=== PATIENT | male | born 1960 | race Caucasian/White ===

== ENCOUNTER 2024-05-06 14:56 | Emergency (ER) | payer OTHER ==
--- OUTSIDE RECORDS SUMMARY | 2024-05-06 14:58 | XMS REPORT | Continuity of Care Document ---
Author Name Unknown Address [address] [place] [address] [facility] Address [address] [place] [address] Care Team Providers Care Charge Manager Name Role Phone Unavailable Unavailable Unavailable Payers Payer Name Policy Type Policy Number Effective Date Expirati on Date Source Allergies, Adverse Reactions, Alerts Allergy Name Allergy Type Status Severity Reaction(s) Onset Date Inactive Date Treating Clinician Comments Source No Known Allergie s DA Active U 09-21 00:00: 00 [facility] No Known Allergie s DA Active U - 00:00: 00 [facility] [place] [facility]
[2024-05-06] MEDS ORDERED: LIDOCAINE 2% W/EPI 1:200,000 MPF 20 ML VIAL IM ONE (15:07)
--- NOTE | 2024-05-06 15:32 | ER ---
Nurse's Notes [facility] Name: Imer Crabtree Age: 63 yrs Sex: Male : 1960 Arrival Date: 05/06/2024 Time: 14:56 Bed 3 Private MD: Diagnosis: Left lower extremity laceration 3 cm, repaired by physician Presentation: 05/06 15:07 Chief complaint: Patient states: he cut his left lower leg when attempting to start his ap3 chainsaw just [employer]. Coronavirus screen: At this time, the client does not indicate any symptoms associated with coronavirus-19. Ebola Screen: No symptoms or risks identified at this time. Initial Sepsis Screen: Does the patient meet any 2 criteria? HR > 90 bpm. Does the patient have a suspected source of infection? No. Patient's initial sepsis screen is negative. Risk Assessment: Do you want to hurt yourself or someone else? Patient reports no desire to harm self or others. Onset of symptoms was May 06, 2024. 15:07 Method Of Arrival: Wheelchair ap3 15:07 Acuity: ARYA 4 ap3 15:55 Complicating Factors: There are no complicating factors for this patient. ko1 Triage Assessment: 15:08 General: Appears in no apparent distress. Behavior is calm, cooperative, appropriate ap3 for age. Pain: Complains of pain in left link Pain currently is 0 out of 10 on a pain scale. Neuro: Level of Consciousness is awake, alert, obeys commands, Oriented to person, place, time, situation. Cardiovascular: Patient's skin is warm and dry. Respiratory: Airway is patent Respiratory effort is even, unlabored, Respiratory pattern is regular, symmetrical. Injury Description: Laceration sustained to left link. Historical: - Allergies: 15:08 No Known Allergies; ap3 - Immunization history:: Client reports receiving the 2nd dose of the Covid vaccine, Last tetanus immunization: unknown. - Infectious Disease History:: Denies. - Social history:: Smoking status: Patient denies any tobacco usage or history of. Screenin:09 Abuse screen: Denies threats or abuse. Nutritional screening: No deficits noted. ap3 Tuberculosis screening: No symptoms or risk factors identified. 15:53 [facility] ED Fall Risk Assessment (Adult) History of falling in the last 3 months, cm10 including since admission No falls in past 3 months (0 pts) Confusion or Disorientation No (0 pts) Intoxicated or Sedated No (0 pts) Impaired Gait No (0 pts) Mobility Assist Device Used No (0 pt) Altered Elimination No (0 pt) Score/Fall Risk Level 0 - 2 = Low Risk Oriented to surroundings, Maintained a safe environment, Hourly rounding (assess needs \T\ fall precautionary measures) done. Assessment: 15:15 General: Appears in no apparent distress. Behavior is cooperative, anxious. Pain: ko1 Complains of pain in left link. Neuro: No deficits noted. Cardiovascular: No deficits noted. Respiratory: No deficits noted. GI: No deficits noted. : No deficits noted. EENT: No deficits noted. Derm: Skin laceration. Musculoskeletal: Circulation, motion, and sensation intact. Capillary refill < 3 seconds, Range of motion: intact in all extremities. Injury Description: Laceration sustained to left ilnk is contaminated, jagged, bleeding moderately, was sustained less than 30 minutes ago. is bleeding moderately. Vital Signs: 15:07 BP 129 / 81; Pulse 113; Resp 17; Pulse Ox 98% ; Weight 81.65 kg; Height 5 ft. 3 in. ; ap3 Pain 0/10; 15:15 BP 126 / 78; Pulse 94; Resp 16; Pulse Ox 99% ; ko1 15:45 BP 128 / 74; Pulse 92; Resp 16; Pulse Ox 99% ; ko1 15:07 Body Mass Index 31.89 (81.65 kg, 160.02 cm) ap3 15:07 Pain Scale: Adult ap3 ED Course: 14:56 Patient arrived in ED. im 15:05 Vasile Neil MD is Attending Physician. sp3 15:08 Triage completed. ap3 15:09 Arm band placed on left wrist. ap3 15:09 Patient has correct armband on for positive identification. Bed in low position. Call ap3 light in reach. Side rails up X 1. Pulse ox on. NIBP on. 15:15 Provided Education on: wound care. Door closed. Noise minimized. Pillow given. ko1 15:53 Assist provider with laceration repair on left link that was 2.5 cm. or less using cm10 sutures. Set up tray. Performed by Vasile Neil MD Patient tolerated well. 15:54 Patient did not have IV access during this emergency room visit. cm10 Administered Medications: 16:01 Not Given (Duplicate Order): boostrix tdap0.5 ml IM once; as a single dose ap3 16:01 Drug: Boostrix Tdap IM 0.5 ml IM once; as a single dose Route: IM; Site: right deltoid; ap3 16:02 Follow up: Response: Medication administered at discharge. ap3 Medication: 15:53 Vaccine Information Statement (VIS) provided today. Questions and/or concerns cm10 addressed. VIS edition date: April 16, 2021. Outcome: 15:15 Discharged to home ambulatory, with family, ko1 15:15 Condition: stable 15:15 Discharge instructions given to patient, family, Instructed on discharge instructions, follow up and referral plans. medication usage, wound care, Demonstrated understanding of instructions, follow-up care, medications, wound care, Prescriptions given X 1, 15:31 Discharge ordered by . sp3 16:01 Patient left the ED. ap3 Signatures: Milana Vargas RN RN ap3 Vasile Neil MD MD sp3 Radha Collado RN RN ko1 Kassie Hernandez Clarissa, RN RN cm10 Corrections: (The following items were deleted from the chart) 15:53 15:50 VIS not applicable for this client. cm10 cm10
--- NOTE | 2024-05-06 15:32 | EDPHYS ---
Physician Documentation [facility] Name: Imer Crabtree Age: 63 yrs Sex: Male : 1960 Arrival Date: 05/06/2024 Time: 14:56 Bed 3 Private MD: ED Physician Vasile Neil HPI: 05/06 15:05 This 63 yrs old Male presents to ER via Unassigned with complaints of Laceration To Leg.sp3 15:05 63-year-old male with history of diabetes currently on daily aspirin 325 mg presents to sp3 the ED with left lower extremity laceration that occurred while trying to start a chainsaw. Tetanus is not up-to-date. No other injury noted. No muscular or motor deficits noted. No secondary injury. Review of systems otherwise negative. No medical prodrome prior to the event.. Historical: - Allergies: 15:08 No Known Allergies; ap3 - Immunization history:: Client reports receiving the 2nd dose of the Covid vaccine, Last tetanus immunization: unknown. - Infectious Disease History:: Denies. - Social history:: Smoking status: Patient denies any tobacco usage or history of. ROS: 15:06 Constitutional: Negative for fever, chills, and weight loss, Eyes: Negative for injury, sp3 pain, redness, and discharge, Neck: Negative for injury, pain, and swelling, Cardiovascular: Negative for chest pain, palpitations, and edema, Respiratory: Negative for shortness of breath, cough, wheezing, and pleuritic chest pain, Abdomen/GI: Negative for abdominal pain, nausea, vomiting, diarrhea, and constipation, Back: Negative for injury and pain, Neuro: Negative for headache, weakness, numbness, tingling, and seizure, Psych: Negative for depression, anxiety, suicide ideation, homicidal ideation, and hallucinations, Allergy/Immunology: Negative for hives, rash, and allergies, Endocrine: Negative for neck swelling, polydipsia, polyuria, polyphagia, and marked weight changes, Hematologic/Lymphatic: Negative for swollen nodes, abnormal bleeding, and unusual bruising, 15:06 All other systems are negative, Exam: 15:06 Constitutional: This is a well developed, well nourished patient who is awake, alert, sp3 and in no acute distress. Head/Face: Normocephalic, atraumatic. Neck: Trachea midline, no thyromegaly or masses palpated, and no cervical lymphadenopathy. Supple, full range of motion without nuchal rigidity, or vertebral point tenderness. No Meningismus. Chest/axilla: Normal chest wall appearance and motion. Nontender with no deformity. No lesions are appreciated. Cardiovascular: Regular rate and rhythm with a normal S1 and S2. No gallops, murmurs, or rubs. Normal PMI, no JVD. No pulse deficits. Respiratory: Lungs have equal breath sounds bilaterally, clear to auscultation and percussion. No rales, rhonchi or wheezes noted. No increased work of breathing, no retractions or nasal flaring. Abdomen/GI: Soft, non-tender, with normal bowel sounds. No distension or tympany. No guarding or rebound. No evidence of tenderness throughout. Back: No spinal tenderness. No costovertebral tenderness. Full range of motion. Neuro: Awake and alert, GCS 15, oriented to person, place, time, and situation. Cranial nerves II-XII grossly intact. Motor strength 5/5 in all extremities. Sensory grossly intact. Cerebellar exam normal. Normal gait. Psych: Awake, alert, with orientation to person, place and time. Behavior, mood, and affect are within normal limits. 15:06 Musculoskeletal/extremity: 3 cm laceration to the left lower extremity in the link area anterior leg mcc between knee and ankle in a horizontal lie. Distal neurovascular exam is normal.. Vital Signs: 15:07 BP 129 / 81; Pulse 113; Resp 17; Pulse Ox 98% ; Weight 81.65 kg; Height 5 ft. 3 in. ; ap3 Pain 0/10; 15:15 BP 126 / 78; Pulse 94; Resp 16; Pulse Ox 99% ; ko1 15:45 BP 128 / 74; Pulse 92; Resp 16; Pulse Ox 99% ; ko1 15:07 Body Mass Index 31.89 (81.65 kg, 160.02 cm) ap3 15:07 Pain Scale: Adult ap3 Laceration: 15:08 Wound Repair of 3cm ( 1.2in ) subcutaneous laceration to left leg. Distal sp3 neuro/vascular/tendon intact. Anesthesia: Local anesthetic administered with 1% lidocaine w/ Epi. Wound prep: Extensive cleansing with betadine by nurse by ny, Wound irrigation. Skin closed with 3 4-0 Prolene. Dressed with Bacitracin, non-adherent dressing. Patient tolerated well. MDM: 15:05 Patient medically screened. sp3 15:07 Data reviewed: vital signs, nurses notes. ED course: 63-year-old male on aspirin with a sp3 3 cm laceration to the left lower extremity. Wound has been cleaned out using sterile saline and repaired will commence using 4-0 Prolene with 3 sutures placed in an interrupted fashion by physician after sterile prep with Betadine. Tetanus will be updated as well. Follow-up with PCP in 7 days for removal. Clinically have ruled out fracture or any other medical prodrome prior to the event.. Administered Medications: 16:01 Not Given (Duplicate Order): boostrix tdap0.5 ml IM once; as a single dose ap3 16:01 Drug: Boostrix Tdap IM 0.5 ml IM once; as a single dose Route: IM; Site: right deltoid; ap3 16:02 Follow up: Response: Medication administered at discharge. ap3 Disposition Summary: 05/06/24 15:31 Discharge Ordered Notes: Location: Home sp3 Condition: Stable sp3 Diagnosis - Left lower extremity laceration 3 cm, repaired by physician sp3 Followup: sp3 - With: Private Physician - When: Upon discharge from the Emergency Department - Reason: Recheck today's complaints Discharge Instructions: - Discharge Summary Sheet sp3 - Sutured Wound Care sp3 Forms: - Medication Reconciliation Form sp3 - Antibiotic Education sp3 - Prescription Opioid Use sp3 - Patient Portal Instructions sp3 - Leadership Thank You Letter sp3 Prescriptions: - Cephalexin 500 mg Oral capsule - take 1 capsule ORAL route every 8 hours for 10 days; 15 capsule; Refills: 0, sp3 Product Selection Permitted Signatures: Milana Vargas RN RN ap3 Vasile Neil MD MD sp3 Katherin Elaine RN RN cm10
[2024-05-06] MEDS ORDERED: TDAP (DIPHTH,PERTUSS(ACELL),TET VAC) 0.5 ML VIAL IMVAC ONE (15:58)
[2024-05-06 16:21] VITALS: O2SAT 99
[2024-05-06 16:23] VITALS: BP 128/74
== END 2024-05-06 16:01 | disposition home or self-care (01) ==
LOC: ER 14:56
DX: S81.812A Laceration without foreign body, left lower leg, initial encounter (principal)
CPT/HCPCS: 12032; 96372; 99284